=== PATIENT | female | born 1950 | race African-American/Black ===

== ENCOUNTER 2018-08-16 06:23 | Observation (INO) ==
[2018-08-16] MEDS ORDERED: Morphine Inj 4 MG/ML Vial IV.PUSH ONE (06:42)
[2018-08-16 06:44] LABS: Baso # (Auto) 0.1 th/mm3 (0.0-0.2); Baso % (Auto) 1.8 % (0.0-2.0); Eos # (Auto) 0.1 th/mm3 (0.0-0.4); Eos % (Auto) 1.8 % (0.0-4.0); Hematocrit 42.1 % (35.0-46.0); Hemoglobin 13.9 gm/dL (11.6-15.3); Lymph # (Auto) 1.9 th/mm3 (1.0-4.8); Mean Corpuscular HGB Conc 33.1 % (32.0-36.0); Mean Corpuscular Hemoglobin 28.9 pg (27.0-34.0); Mean Corpuscular Volume 87.2 fL (80.0-100.0); Mean Platelet Volume 7.9 fL (7.0-11.0); Mono # (Auto) 0.3 th/mm3 (0.0-0.9); Mono % (Auto) 5.1 % (0.0-8.0); Neut # (Auto) 3.7 th/mm3 (1.8-7.7); Neut % (Auto) 60.3 % (16.0-70.0); Platelet Count 254 th/mm3 (150-450); Red Blood Count 4.83 mil/mm3 (4.00-5.30); Red Cell Distribution Width 13.1 % (11.6-17.2); White Blood Count 6.1 th/mm3 (4.0-11.0)
--- NOTE | 2018-08-16 06:49 | ED ---
HPI General Chief Complaint: Chest Pain Stated Complaint: Chest pain x 2 hrs Time Seen by Provider: 08/16/18 06:35 Source: patient Mode of arrival: ambulatory Limitations: no limitations History of Present Illness HPI narrative: Patient presents with substernal pressure on the left radiating to the right chest. No shortness of breath or indigestion. However patient had diaphoresis. Patient states the pain was initially 8 out of 10 and is now 4 out of 10. At the same time patient has a left temporal headache. This is a headache that she has frequently; but came on shortly after the chest pain came on. Patient has history of diabetes and hypertension. No cardiac or neurologic abnormalities. Patient has esophageal dysphasia and had a recently dilatation of the esophagus; 3 months ago Related Data Home Medications Medication Instructions Recorded Confirmed aspirin [Aspir-Low] 81 mg PO DAILY 08/16/18 08/16/18 calcium carbonate [Calcium 600] 600 mg PO BID 08/16/18 08/16/18 omeprazole 20 mg PO DAILY 08/16/18 08/16/18 potassium 99 mg PO DAILY 08/16/18 08/16/18 vitamin [id number] acid 1 tab PO DAILY 08/16/18 08/16/18 Previous Rx's Medication Instructions Recorded amlodipine 5 mg PO DAILY #30 tab 08/16/18 Allergies Allergy/AdvReac Type Severity Reaction Status Date / Time Iodinated Contrast- Oral and Allergy Rash Verified 08/16/18 06:26 IV Dye [Contrast] iodine Allergy Rash Verified 08/16/18 06:25 Review of Systems ROS: all other systems reviewed are negative [facility] Medical History Medical History History of diabetes mellitus (Acute) History of high blood pressure (Acute) Hx of hysterectomy (Acute) Surgical History Surgical History Hx of appendectomy (Acute) Hx of arthroscopic knee surgery (Acute) Hx of breast lump removal (Acute) Hx of cholecystectomy (Acute) Hx of tonsillectomy (Acute) Family History Family History Father Family history of prostate cancer Mother Family history of stroke Family history of hypertension Social History Social History Substance History: No History of Abuse Second Hand Smoke Exposure: No Smoking Status: Never smoker How Often Do You Have a Drink Containing Alcohol: Never Recent Travel in [facility] within the Last 8 Weeks: No Recent Out of Country Travel within the Last 8 Weeks: No Immunization History Tetanus Immunization: Unsure Exam Narrative Exam Narrative: GENERAL: Alert and oriented SKIN: Focused skin assessment warm/dry. HEAD: Atraumatic. Normocephalic. EYES: Pupils equal and round. No scleral icterus. No injection or drainage. NECK: Trachea midline. No JVD. CARDIOVASCULAR: Regular rate and rhythm. No murmur appreciated. RESPIRATORY: No accessory muscle use. Clear to auscultation. Breath sounds equal bilaterally. GASTROINTESTINAL: Abdomen soft, non-tender, nondistended. Hepatic and splenic margins not palpable. MUSCULOSKELETAL: No obvious deformities. No clubbing. No cyanosis. No edema. Course Initial Documented Vital Signs Temperature 97.7 F 08/16/18 06:32 Pulse Rate 60 08/16/18 06:32 Respiratory Rate 18 08/16/18 06:32 Blood Pressure 159/85 H 08/16/18 06:32 Pulse Oximetry 100 08/16/18 06:32 Last Documented Vital Signs Temperature 97.8 F 08/16/18 12:00 Pulse Rate 101 H 08/16/18 16:00 Respiratory Rate 19 08/16/18 12:00 Blood Pressure 158/77 H 08/16/18 12:00 Pulse Oximetry 98 08/16/18 12:00 Sign Out Sign Out Data: Patient Sign Out occurred on 08/16/18 at 07:29. Patient's care was discussed, and care was transferred from Everardo Rodriges MD to Scarlett Victor DO. Sign Out Comment: Patient with hypertension who presents with substernal pressure of 2 hours duration prior to arrival. Cardiac workup initiated Last updated by Everardo Rodriges MD at 08/16/18 06:50 Post-Handoff Eval: Patient received during AM sign-out from Dr. Rodriges. 68yF presenting with chest "pressure"-like pain (left-sided, radiated to sternum, constant, associated with palpitations/ diaphoresis/ dizziness/ headache) which resolved with sublingual nitroglycerin. She has a history of "pre-diabetes" and HTN, no longer takes antihypertensives after significant weight loss. She was seen by a site supervising technical operator in [place] approximately 5 years ago, had a nuclear stress test which was reportedly normal. Family history of mother with [place] at age 70. The patient has a HEART score of 4, negative trop x 1, cardiomegaly on CXR, no concerning EKG changes. Case discussed with hospitalist, will keep patient for chest pain center obs. Patient understands and agrees with plan. Clinical Decision Support HEART Score Questions History: Moderately suspicious EKG: Normal Age: 65 years+ Risk Factors: 1-2 Risk Factors Initial Troponin: Normal Limit Heart Score HEART Score: 4 Medical Decision Making MDM Narrative Medical Screen Exam Complete: Yes Emergency Medical Condition: Yes Lab Data Lab results reviewed: Yes I reviewed the patient's lab results. Result diagrams: 08/16/18 06:33 08/16/18 06:33 Lab Results 08/16/18 08/16/18 08/16/18 Range/Units 06:33 06:33 09:31 CBC w Diff Auto diff final WBC 6.1 (4.0-11.0) th/mm3 RBC 4.83 (4.00-5.30) mil/mm3 Hgb 13.9 (11.6-15.3) gm/dL Hct 42.1 (35.0-46.0) % MCV 87.2 (80.0-100.0) fL MCH 28.9 (27.0-34.0) pg MCHC 33.1 (32.0-36.0) % RDW 13.1 (11.6-17.2) % Plt Count 254 (150-450) th/mm3 MPV 7.9 (7.0-11.0) fL Neut % (Auto) 60.3 (16.0-70.0) % Lymph % (Auto) 31.0 (9.0-44.0) % [place] % (Auto) 5.1 (0.0-8.0) % Eos % (Auto) 1.8 (0.0-4.0) % Baso % (Auto) 1.8 (0.0-2.0) % Neut # (Auto) 3.7 (1.8-7.7) th/mm3 Lymph # (Auto) 1.9 (1.0-4.8) th/mm3 [place] # (Auto) 0.3 (0.0-0.9) th/mm3 Eos # (Auto) 0.1 (0.0-0.4) th/mm3 Baso # (Auto) 0.1 (0.0-0.2) th/mm3 WBC Differential . Differential Comment . Sodium 144 (136-145) meq/L Potassium 3.5 (3.5-5.1) meq/L Chloride 109 H (98-107) meq/L Carbon Dioxide 28.6 (21.0-32.0) meq/L Anion Gap 6 (5-15) meq/L BUN 14 (7-18) mg/dL Creatinine 0.89 (0.50-1.00) mg/dL Estimated GFR 63 L (>89) mL/min Random Glucose 90 (74-106) mg/dL Calcium 8.6 (8.5-10.1) mg/dL Total Bilirubin 0.4 (0.2-1.0) mg/dL AST 15 (15-37) U/L ALT 18 (10-53) U/L Alkaline Phosphatase 124 H (45-117) U/L Troponin I Less than 0.02 L Less than 0.02 L (0.02-0.05) ng/mL Total Protein 7.5 (6.4-8.2) g/dL Albumin 3.6 (3.4-5.0) g/dL 08/16/18 Range/Units 12:24 CBC w Diff WBC (4.0-11.0) th/mm3 RBC (4.00-5.30) mil/mm3 Hgb (11.6-15.3) gm/dL Hct (35.0-46.0) % MCV (80.0-100.0) fL MCH (27.0-34.0) pg MCHC (32.0-36.0) % RDW (11.6-17.2) % Plt Count (150-450) th/mm3 MPV (7.0-11.0) fL Neut % (Auto) (16.0-70.0) % Lymph % (Auto) (9.0-44.0) % [place] % (Auto) (0.0-8.0) % Eos % (Auto) (0.0-4.0) % Baso % (Auto) (0.0-2.0) % Neut # (Auto) (1.8-7.7) th/mm3 Lymph # (Auto) (1.0-4.8) th/mm3 [place] # (Auto) (0.0-0.9) th/mm3 Eos # (Auto) (0.0-0.4) th/mm3 Baso # (Auto) (0.0-0.2) th/mm3 WBC Differential Differential Comment Sodium (136-145) meq/L Potassium (3.5-5.1) meq/L Chloride (98-107) meq/L Carbon Dioxide (21.0-32.0) meq/L Anion Gap (5-15) meq/L BUN (7-18) mg/dL Creatinine (0.50-1.00) mg/dL Estimated GFR (>89) mL/min Random Glucose (74-106) mg/dL Calcium (8.5-10.1) mg/dL Total Bilirubin (0.2-1.0) mg/dL AST (15-37) U/L ALT (10-53) U/L Alkaline Phosphatase (45-117) U/L Troponin I Less than 0.02 L (0.02-0.05) ng/mL Total Protein (6.4-8.2) g/dL Albumin (3.4-5.0) g/dL Imaging Data Radiologist's impression: Myocardial Perfusion Scan Nuc Med 08/16/18 00:00 CONCLUSION: Suspected mild ischemia in the anterior wall mid ventricle. Chest X-Ray 08/16/18 06:32 CONCLUSION: Hyperinflation and cardiomegaly. Discharge Plan Discharge Disposition Patient Disposition: ED Admit(ED Internal Use Only) Discharge Condition Condition: Stable Discharge Order Discharge Orders: Discharge Order (Routine); Ordered 08/16/18 Ordered By: Ron Reynolds ED Use Only Admit Order (Routine); Ordered 08/16/18 Ordered By: Scarlett Victor Discharge Details Anticipated Discharge Date: 08/16/18 Diagnosis: Chest pain, Cardiomegaly Physicians Team ED Provider: Scarlett Victor Primary Care Provider: Primary Care Cassandrai,Viji Attending Provider: Fadumo Greer Status ED Status: Left Department Discharge Information Discharge Date/Time: 08/16/18 08:58
[2018-08-16 06:51] LABS: Chloride 109 meq/L (98-107); Potassium 3.5 meq/L (3.5-5.1); Sodium 144 meq/L (136-145)
--- NOTE | 2018-08-16 06:51 | XR ---
EXAM DATE: 08/16/2018 6:47 AM EST AGE/SEX: 68 years / Female INDICATIONS: Chest pain. CLINICAL DATA: This is the patient's initial encounter. Patient reports that signs and symptoms have been present for 1 day and indicates a pain score of 8/10. MEDICAL/SURGICAL HISTORY: Gastroesophageal reflux disease. None. COMPARISON: No prior exams available for comparison. FINDINGS: Cardiomegaly. Mild hyperaeration. Clear lungs. Osseous structures are intact. CONCLUSION: Hyperinflation and cardiomegaly. Electronically signed by: Willem Camejo MD 08/16/2018 6:49 AM EST
[2018-08-16 06:55] LABS: Albumin 3.6 g/dL (3.4-5.0); Anion Gap 6 meq/L (5-15); Blood Urea Nitrogen 14 mg/dL (7-18); Calcium 8.6 mg/dL (8.5-10.1); Carbon Dioxide 28.6 meq/L (21.0-32.0); Glucose,Random 90 mg/dL (74-106)
[2018-08-16 06:58] LABS: Alanine Aminotransferase 18 U/L (10-53); Aspartate Aminotransferase 15 U/L (15-37); Glomerular Filtration Rate 63 mL/min (>89)
[2018-08-16 07:00] LABS: Total Protein 7.5 g/dL (6.4-8.2)
[2018-08-16 07:01] LABS: Alkaline Phosphatase 124 U/L (45-117)
[2018-08-16] MEDS ORDERED: Acetaminophen 500 MG Tablet PO PRN (07:55)
[2018-08-16] MEDS ORDERED: Regadenoson Inj 0.4 MG/5 ML Syringe IV.PUSH ONE (07:57)
--- NOTE | 2018-08-16 08:31 | P.HP ---
History of Present Illness Primary Care Physician: No Primary Care Physician Chief Complaint: Chest pain History of Present Illness: 68-year-old female with known history of hypertension, diabetes who presented to hospital with acute onset of chest pain. Patient states that at 4 AM this morning she woke up out of her sleep with severe left-sided chest pain rating to the middle part of her chest with associated headache. He states the pain was 8/10 on a pain scale and persisted for a couple hours and when it did not go away she came to the emergency department for evaluation. Patient was given aspirin, nitroglycerin, the emergency department with complete resolution of the pain. Patient denies any radiation to the neck, back, shoulder, arm. Denied any nausea, vomiting, shortness of breath, dyspnea, lightheadedness, dizziness. She did state that she had increased sweating but not profusely. Patient has had previous cardiac workup done approximately 3 years ago with myocardial perfusion study which was normal. Patient's initial workup emergency department was unremarkable and it was recommended by the ER physician and the patient be observed in the chest pain center for further evaluation and management. - Diagnosis (1) Chest pain Review of Systems All other systems reviewed negative except as stated in HPI Constitutional: Reports excessive sweating Cardiovascular: Reports chest pain PMFSH - History History Provided By: Patient - Medical History Medical History: Medical History (Last Updated 08/16/18 @ 08:27 by ROVERTO Harris) History of diabetes mellitus History of high blood pressure Hx of hysterectomy - Surgical History Surgical History: Surgical History (Last Reviewed 08/16/18 @ 06:47 by Everardo Rodriges MD) Hx of appendectomy Hx of arthroscopic knee surgery Hx of breast lump removal Hx of cholecystectomy Hx of tonsillectomy - Family History Family History: Family History (Last Updated 08/16/18 @ 08:28 by ROVERTO Harris) Father Family history of prostate cancer Mother Family history of stroke Family history of hypertension - Tobacco History Smoking Status: Never smoker - Alcohol History How Often Do You Have a Drink Containing Alcohol: Never - Substance Use History Substance History: No History of Abuse - Travel History Recent Travel in the [place] Within the Last 8 Weeks: No Recent Travel Out of the Country Within the Last 8 Weeks: No - Immunization History Tetanus Immunization: Unsure Medications and Allergies Active Medications: Active Medications Acetaminophen (Tylenol) 500 mg PO Q4H PRN PRN Reason: HEADACHE Aspirin (Aspirin) 325 mg PO DAILY BERTO Nitroglycerin (Nitrostat Sl) 0.4 mg SL Q5M PRN PRN Reason: CHEST PAIN Ondansetron HCl (Zofran Inj) 4 mg IV.PUSH Q6H PRN PRN Reason: NAUSEA Sodium Chloride (Ns Flush) 2 ml IV.FLUSH BID BERTO Sodium Chloride (Ns Flush) 2 ml IV.FLUSH PRN PRN PRN Reason: FLUSH AFTER USING IV ACCESS Allergies Allergy/AdvReac Type Severity Reaction Status Date / Time Iodinated Contrast- Oral and Allergy Rash Verified 08/16/18 06:26 IV Dye [Contrast] iodine Allergy Rash Verified 08/16/18 06:25 Home Medications Medication Instructions Recorded Confirmed Type aspirin [Aspir-Low] 81 mg PO DAILY 08/16/18 08/16/18 History calcium carbonate [Calcium 600] 600 mg PO BID 08/16/18 08/16/18 History omeprazole 20 mg PO DAILY 08/16/18 08/16/18 History potassium 99 mg PO DAILY 08/16/18 08/16/18 History vitamin [id number] acid 1 tab PO DAILY 08/16/18 08/16/18 History Exam Vital signs: Vital Signs 08/16/18 06:32 08/16/18 06:36 08/16/18 06:50 Temperature 97.7 F Pulse Rate 60 60 54 L Respiratory Rate 18 16 Blood Pressure 159/85 H 136/83 Pulse Oximetry 100 100 99 08/16/18 06:57 08/16/18 07:00 08/16/18 07:08 Temperature Pulse Rate 58 L 54 L Respiratory Rate 16 16 16 Blood Pressure 133/81 136/73 Pulse Oximetry 97 100 08/16/18 07:23 Temperature 98.4 F Pulse Rate 59 L Respiratory Rate 16 Blood Pressure 136/86 Pulse Oximetry 96 Intake & Output 08/15/18 08/16/18 08/16/18 18:59 06:59 18:59 Weight 81.5 kg Narrative: GENERAL: Well-developed, well-nourished, in no acute distress. alert and orientated HEENT: Head is normocephalic without any lesions or masses noted. Facial features are symmetric. Eyes: Pupils equal round reactive to light. Extraocular muscles are intact. Conjunctivae were clear. Oropharyngeal: Pharynx without any erythema edema. Tongue is midline without deviation. Buccal mucosa is moist without any masses or lesions NECK: Supple without any masses. Trachea midline no deviation. No JVD, no bruits are appreciated CARDIAC: Regular rhythm, regular rate. S1/S2 are heard. No murmurs gallops or rubs. LUNGS: Clear to auscultation bilaterally. No wheeze, rhonchi or rales. No use of accessory muscles on inspiration or expiration. ABDOMEN: Soft, nontender. Nondistended. Bowel sounds heard in all 4 quadrants. No organomegaly or masses. Negative rebound, negative guarding EXTREMITIES: No edema, pulses are equal bilaterally. No cyanosis or clubbing NEUROLOGY: Mood and affect appear appropriate. Cranial nerves II through XII grossly intact. Muscle strength 5/5 in upper and lower extremities bilaterally. Deep tendon reflexes are 2+ in upper and lower extremities bilaterally. Results - Labs CBC & Chem 7: 08/16/18 06:33 08/16/18 06:33 Labs: Laboratory Results - last 24 hr 08/16/18 08/16/18 06:33 06:33 CBC w Diff Auto diff final WBC 6.1 RBC 4.83 Hgb 13.9 Hct 42.1 MCV 87.2 MCH 28.9 MCHC 33.1 RDW 13.1 Plt Count 254 MPV 7.9 Neut % (Auto) 60.3 Lymph % (Auto) 31.0 [place] % (Auto) 5.1 Eos % (Auto) 1.8 Baso % (Auto) 1.8 Neut # (Auto) 3.7 Lymph # (Auto) 1.9 [place] # (Auto) 0.3 Eos # (Auto) 0.1 Baso # (Auto) 0.1 WBC Differential . Differential Comment . Sodium 144 Potassium 3.5 Chloride 109 H Carbon Dioxide 28.6 Anion Gap 6 BUN 14 Creatinine 0.89 Estimated GFR 63 L Random Glucose 90 Calcium 8.6 Total Bilirubin 0.4 AST 15 ALT 18 Alkaline Phosphatase 124 H Troponin I Less than 0.02 L Total Protein 7.5 Albumin 3.6 - Imaging Impressions Chest X-Ray 08/16/18 06:32 CONCLUSION: Hyperinflation and cardiomegaly. Caprini VTE Risk Assessment Caprini VTE Risk Assessment: No/Low Risk (score <= 1) Caprini Risk Assessment Model: Point Value = 1 Point Value = 2 Point Value = 3 Point Value = 5 Age 41-60 Minor surgery BMI > 25 kg/m2 Swollen legs Varicose veins or History of unexplained or recurrent spontaneous Oral contraceptives or hormone replacement Sepsis (< 1 month) Serious lung disease, including pneumonia (< 1 month) Abnormal pulmonary function Acute myocardial infarction Congestive heart failure (< 1 month) History of inflammatory bowel disease Medical patient at bed rest Age 61-74 Arthroscopic surgery Major open surgery (> 45 min) Laparoscopic surgery (> 45 min) Malignancy Confined to bed (> 72 hours) Immobilizing plaster cast Central venous access Age >= 75 History of VTE Family history of VTE Factor V Leiden Prothrombin [id number] Lupus anticoagulant Anticardiolipin antibodies Elevated serum homocysteine Heparin-induced thrombocytopenia Other congenital or acquired thrombophilia Stroke (< 1 month) Elective arthroplasty Hip, pelvis, or leg fracture Acute spinal cord injury (< 1 month) Prophylaxis Regimen: Total Risk Factor Score Risk Level Prophylaxis Regimen 0-1 Low Early ambulation 2 Moderate Order ONE of the following: *Sequential Compression Device (SCD) *Heparin 5000 units SQ BID 3-4 Higher Order ONE of the following medications: *Heparin 5000 units SQ TID *Enoxaparin/Lovenox 40 mg SQ daily (WT < 150 kg, CrCl > 30 mL/min) *Enoxaparin/Lovenox 30 mg SQ daily (WT < 150 kg, CrCl > 10-29 mL/min) *Enoxaparin/Lovenox 30 mg SQ BID (WT < 150 kg, CrCl > 30 mL/min) AND/OR *Sequential Compression Device (SCD) 5 or more Highest Order ONE of the following medications: *Heparin 5000 units SQ TID (Preferred with Epidurals) *Enoxaparin/Lovenox 40 mg SQ daily (WT < 150 kg, CrCl > 30 mL/min) *Enoxaparin/Lovenox 30 mg SQ daily (WT < 150 kg, CrCl > 10-29 mL/min) *Enoxaparin/Lovenox 30 mg SQ BID (WT < 150 kg, CrCl > 30 mL/min) AND *Sequential Compression Device (SCD) Assessment and Plan - Assessment (1) Chest pain Code(s): R07.9 - Chest pain, unspecified Status: Acute - Plan Chest pain -Patient does have increased risk factors to include age, history of hypertension, history of diabetes, no history of heart disease -Patient was ruled out for acute coronary event with serial cardiac enzymes remain negative -Serial EKGs reviewed by myself which did not indicate any signs of ischemia or changes -Myocardial perfusion study was performed and indicated suspected mild ischemia , low risk -Continue aspirin, nitroglycerin as needed, morphine for pain control -Continue monitor telemetry -Discussed with Cardiology air traffic control specialist, indicting low risk study, not candidate for cardiac cath, recommending outpatient follow up with [facility] -Unable to use beta timoteo and/or Imdur due to bradycardia -Start amlodipine 5mg daily History of hypertension, history of diabetes -Lifestyle modifications were done and patient no longer requires active treatment -Continue with healthy heart/diabetic diet DVT prevention -Low risk, early ambulation Discharge Planning: Discharge home in stable condition Activity: Ad mahad. Diet: Healthy heart diet/diabetic diet Medication per medication reconciliation Follow-up with primary medical doctor in 1 week
--- NOTE | 2018-08-16 09:53 | ECG ---
Date Performed: 08/16/2018 Time Performed: 06:35:01 PTAGE: 68 years EKG: SINUS BRADYCARDIA NONSPECIFIC T-WAVE ABNORMALITY BORDERLINE ECG NO PREVIOUS TRACING DOCTOR: Lawson Nolasco Interpretating Date/Time 08/16/2018 09:51:40
--- NOTE | 2018-08-16 16:34 | NM ---
EXAM DATE: 08/16/2018 4:23 PM EST AGE/SEX: 68 years / Female INDICATIONS:Angina. . Acute onset of chest pain. CLINICAL DATA: This is the patient's initial encounter. Patient reports that signs and symptoms have been present for 1 day and indicates a pain score of 8/10. MEDICAL/SURGICAL HISTORY: Diabetes. Hypertension. Hysterectomy. Appendectomy. Tonsillectomy. Cholecystectomy, lumpectomy. COMPARISON: No prior exams available for comparison. DOSE: 8.7 mCi Tc 99m Myoview at rest 26.2 mCi [id number] at stress 0.4 mg Lexiscan STRESS SYMPTOMS: None. EJECTION FRACTION: 49 % TECHNIQUE: The patient underwent pharmacologic stress with infusion of prescribed dose. Continuous ECG tracing was monitored during stress. Gated SPECT imaging was performed after stress and conventi onal SPECT imaging was performed at rest. The examination was performed on a SPECT/CT scanner, both attenuation and non-corrected datasets were reviewed. FINDINGS: Distribution: The maximum perfused segment at stress is in the septal wall. Perfusion Study: There is a mild area of decreased activity seen in the anterior wall mid ventricle on the stress images. Gated Study: There are intact wall motion and wall thickening without hypokinetic or dyskinetic segm ents. The ejection fraction is calculated at 49%. RISK CATEGORY: Low (<1% Annual Motality Rate) CONCLUSION: Suspected mild ischemia in the anterior wall mid ventricle. Electronically signed by: Silvano Loja MD 08/16/2018 4:33 PM EST
--- NOTE | 2018-08-16 16:40 | ECG ---
Date Performed: 08/16/2018 Time Performed: 12:29:19 PTAGE: 68 years EKG: SINUS BRADYCARDIA NONSPECIFIC T-WAVE ABNORMALITY Since the previous tracing, no significant change noted BORDERLINE ECG PREVIOUS TRACING : 08/16/2018 09.35 DOCTOR: Lawson Nolasco Interpretating Date/Time 08/16/2018 16:37:29
--- NOTE | 2018-08-16 16:40 | ECG ---
Date Performed: 08/16/2018 Time Performed: 09:35:52 PTAGE: 68 years EKG: SINUS BRADYCARDIA NONSPECIFIC T-WAVE ABNORMALITY Since the previous tracing, no significant change noted BORDERLINE ECG PREVIOUS TRACING : 08/16/2018 06.35 DOCTOR: Lawson Nolasco Interpretating Date/Time 08/16/2018 16:37:19
[2018-08-17] MEDS ORDERED: Aspirin 325 MG Tablet PO SCH (09:00)
--- NOTE | 2018-08-18 16:03 | TR ---
Date Performed: 08/16/2018 Time Performed: 15:12:44 DOCTOR: Yasmin Rucker DRUG LIST: CLINICAL HISTORY: REASON FOR TEST: Angina REASON FOR ENDING: OBSERVATION: CONCLUSION: Lexiscan stress test was performed under standard four minute protocol. Radionuclid e was injected one minute prior to ending the test. Suzy watkins flipped with stress. Nuclear imaging an d interpretation are pending. COMMENTS: Suzy watkins flipped with stress
== END 2018-08-16 18:29 | disposition home or self-care (01) ==
LOC: PHED 06:23 → PHEDA 06:23 → PH3 08:52
PROVIDERS: ADMIT Internal Medicine; ATTEND Internal Medicine